=== PATIENT | male | born 1965 | race Caucasian/White ===

== ENCOUNTER 2019-09-02 16:10 | Emergency (ER) | payer OTHER ==
[~2019-09-02] VITALS: Ht 172.7 cm; Wt 124.7 kg
[2019-09-02] MEDS ORDERED: ESKALITH CR450 MG PO (16:22)
[2019-09-02] MEDS ORDERED: PRISTIQ50 M1 PO (16:22)
[2019-09-02 17:08] LABS: URINE BILIRUBIN NEGATIVE (Negative); URINE BLOOD TRACE (Negative); URINE CLARITY CLEAR; URINE COLOR YELLOW; URINE GLUCOSE-RANDOM 3+ (Negative); URINE KETONES TRACE (Negative); URINE LEUKOCYTES NEGATIVE (Negative); URINE NITRITE NEGATIVE (Negative); URINE PROTEIN 1+ (Negative); URINE SPECIFIC GRAVITY 1.015 (1.005-1.030); URINE UROBILINOGEN 0.2 E.U./dl (0.2-1.0)
[2019-09-02 17:08] LABS: HEMATOCRIT 46.7 % (42.0-52.0); HEMOGLOBIN 16.3 gm/dL (14.0-18.0); MCH 29.6 pg (26.0-34.0); MCV 84.6 fL (80.0-100.0); MPV 8.5 fl. (7.2-11.1); RBC 5.51 mil/uL (4.50-6.00); RDW-CV 12.9 % (10.5-14.5); WBC 7.7 thou/uL (4.0-11.0)
[2019-09-02 17:16] LABS: AMP/METHAMP Negative (Negative); BARBITURATES Negative (Negative); BENZODIAZEPINES Negative (Negative); COCAINE Negative (Negative); METHADONE Negative (Negative); OPIATES Negative (Negative); PCP Negative (Negative); THC Negative (Negative)
[2019-09-02 17:18] LABS: CALCIUM 9.2 mg/dL (8.5-10.1); CREATININE 1.2 mg/dL (0.6-1.3); POTASSIUM 4.4 mmol/L (3.5-5.1)
[2019-09-02 17:28] LABS: ALBUMIN 4.3 g/dL (3.4-5.0); SALICYLATE < 2.8 mg/dL (2.8-20.0); TOTAL BILIRUBIN 0.5 mg/dL (<0.1-1.0); TOTAL PROTEIN 7.8 g/dL (6.4-8.2)
[2019-09-02 17:29] LABS: ACETAMINOPHEN < 2 ug/mL (10-30); ALCOHOL < 10 mg/dL (<10)
[2019-09-02] MEDS ORDERED: ATIVAN1 M1 PO (23:58)
[2019-09-03 00:11] VITALS: BP 154/90
== END 2019-09-03 00:15 | disposition home or self-care (01) ==
LOC: M.ERS 16:10
PROVIDERS: Personal Emergency Response Attendant
DX: F41.9 Anxiety disorder, unspecified (principal); F32.9 Major depressive disorder, single episode, unspecified; R45.851 Suicidal ideations; Z90.49 Acquired absence of other specified parts of digestive tract; Z88.8 Allergy status to other drugs, medicaments and biological substances